=== PATIENT | male | born 1950 | race Caucasian/White ===

== ENCOUNTER 2017-09-23 08:36 | Outpatient (CLI) | payer MEDICARE, BC ==
[~2017-09-23 08:36] MED LIST: ISOVUE-370 76%-LOCM 1 ML ONE
== END 2017-09-23 08:37 | disposition home or self-care (01) ==
LOC: BICCT 08:36
PROVIDERS: ATTEND Student in an Organized Health Care Education/Training Program
DX: R42 Dizziness and giddiness (principal); R26.89 Other abnormalities of gait and mobility; I70.90 Unspecified atherosclerosis
CPT/HCPCS: 70498

== ENCOUNTER 2017-09-30 08:45 | Outpatient (CLI) | payer MEDICARE, BC | END 2017-09-30 08:46 | disposition home or self-care (01) | LOC: BICMRI 08:45 | PROVIDERS: ATTEND Student in an Organized Health Care Education/Training Program | DX: M50.90 Cervical disc disorder, unspecified, unspecified cervical region (principal); R42 Dizziness and giddiness; R26.89 Other abnormalities of gait and mobility; M48.02 Spinal stenosis, cervical region; M99.81 Other biomechanical lesions of cervical region | CPT/HCPCS: 72141 ==

== ENCOUNTER 2017-11-17 10:27 | Outpatient (CLI) | payer MEDICARE, BC ==
--- NOTE | 2017-11-17 11:40 | RAD ---
NEUTRAL AND FLEXION AND EXTENSION LATERAL IMAGING OF THE CERVICAL SPINE: DATE: 11/17/17. COMPARISON: None. HISTORY: Cervical radiculopathy. FINDINGS: There is straightening of the normal cervical lordosis on the neutral lateral imaging with mild exagg erated kyphosis. There is disk space narrowing and degenerative end plate change with anterior osteo phyte formation throughout the cervical spine, most prominent at C3-4, C4-5, C5-6, C6-7, and C7-T1. With flexion, there is no significant anterolisthesis or retrolisthesis. The C7-T1 level is not well visualized on the flexion imaging. With extension, there is no significant anterolisthesis or retro listhesis. No prevertebral soft tissue swelling. IMPRESSION: Multilevel degenerative change within the cervical spine as described above. POS: COLE
== END 2017-11-17 10:28 | disposition home or self-care (01) ==
LOC: TBSIIMAG 10:27
PROVIDERS: ATTEND Neurological Surgery
DX: M47.22 Other spondylosis with radiculopathy, cervical region (principal)
CPT/HCPCS: 72040

== ENCOUNTER 2018-03-16 11:46 | Outpatient (CLI) | payer MEDICARE, BC ==
[2018-03-16 12:50] LABS: Hemoglobin 15.5 g/dL (14.0-18.0); Mean Corpuscular HGB CONC 33.2 g/dL (32.0-36.0); Mean Corpuscular Volume 99.5 fL (78.0-98.0); Mean Platelet Volume 7.1 fL (7.4-10.4); Platelet Count 236 thou/uL (130-400); RBC Distribution Width 12.2 % (11.5-14.5); White Blood Cell (WBC) Count 6.6 thou/uL (4.8-10.8)
[2018-03-16 12:59] LABS: INR-International Normal Ratio 0.9; PTT 27.7 SEC (22.9-36.1); Prothrombin Time 12.6 SEC (12.0-14.7)
== END 2018-03-16 11:47 | disposition home or self-care (01) ==
LOC: LABBT 11:46
PROVIDERS: ATTEND Neurological Surgery
DX: Z01.812 Encounter for preprocedural laboratory examination (principal); M47.12 Other spondylosis with myelopathy, cervical region; M50.90 Cervical disc disorder, unspecified, unspecified cervical region
CPT/HCPCS: 85027; 85610; 85730

== ENCOUNTER 2018-04-22 10:36 | Day surgery (SDC) | payer MEDICARE, BC ==
[2018-03-16 12:20] VITALS: BMI 26.2
--- NOTE | 2018-04-21 18:46 | HP ---
HISTORY OF PRESENT ILLNESS: Mr. Almaraz is a 67-year-old male who has been referred to us for evalu ation of vertigo. Patient states that he has started having vertigo about a year ago with no event t hat he can remember. He has been seen by ENT and Neurology and now by Neurosurgery. The patient has not found any relief from his vertigo which is constant. It is better if he is still and worse with movement like shopping and . The patient denies any nausea or vomiting. He feels as though he cannot find his legs and that the room is spinning. He denies any falls. He does feel that his lef t leg is weaker and there is a shorter swing phase on walking and it is more difficult putting his pa nts on. The patient states that he had a disk herniation at C6, seven years ago, but injections made the pain go away. He has residual left ring and pinky finger numbness. Patient is retired but tanya ins active. He ran a 5K back in August and tries to exercise 5 days a week. REVIEW OF SYSTEMS: A 10-point review of systems has been completed and is negative other than stated in the HPI above. PAST MEDICAL HISTORY: Colon resection, basal cell removal, and stapedectomy. PAST SURGICAL HISTORY: Ear drum/stapes replacement 1977, colon resection 1984. FAMILY HISTORY: Father was , diagnosed with diabetes and heart disease. Mother is , diagnosed with cancer. Siblings are alive. SOCIAL HISTORY: Patient is a nonsmoker, occasionally drinks alcohol. He is sexually active with his , , and he is retired. MEDICATIONS: Aspirin 81 mg, magnesium, fish oil, iron supplement, Cosamin ASU for joint health, calc ium. ALLERGIES: No known drug allergies. PHYSICAL EXAMINATION: GENERAL: The patient is alert and oriented x3. Does not appear to be in any visible distress. HEENT: Head is normocephalic, atraumatic. Pupils are equal, round, and reactive to light. Extraocu lar movements are intact. Hearing is intact. Moist mucous membranes. NECK: Soft, supple, no masses noted. Range of motion intact and nonpainful. RESPIRATORY: Normal work of breathing on room air. CARDIOVASCULAR: Normal S1, S2, regular rate and rhythm. NEUROLOGIC: Patient is awake, alert, and oriented x3. Memory attention, fund of knowledge and langu age are normal. Cranial nerves are normal. Cranial nerves are grossly intact. EXTREMITIES: Upper extremities do not disclose any focal motor weakness or deep tendon asymmetry. Abnormal left hand intrinsic muscles decreased sensation to the left fourth and fifth digit. Lower extremities normal. Does not disclose any focal motor weakness or deep tendon reflex asymmetry . IMAGING: Cervical spinal stenosis at C6 through T1 foraminal narrowing. ASSESSMENT: Cervical myelopathy due to degenerative disks. PLAN: Dr. Saenz has offered ACDF C6 through T1. We have discussed indications, risks, benefits, alternatives, and expected results of surgery. The risks discussed include but were not limited to bleeding, infection, CSF leak, nerve damage, weakness, swallowing trouble, feeding tube placement, tr acheal injury, esophageal injury, vocal cord injuries, spinal cord injuries, incontinence, paralysis, ventilator dependence, wheelchair dependence, stroke, loss of vision, carotid artery injury, jugular vein injury, hardware misplacement, and cardiopulmonary complications of anesthesia or . Long- term complications discussed included but were not limited to hardware failure and then degradation o f the surrounding disks. The patient states that he understands the risks and is willing to move for avalos with surgery.
[2018-04-22] MEDS ORDERED: CEFAZOLIN 2 GM/50 ML BAG ONE ×2 (11:16→17:57)
[2018-04-22] MEDS ORDERED: Thrombin 5000 UNITS/5 ML VIAL ONE (11:41)
[2018-04-22] MEDS ORDERED: Sodium Chloride 0.9% 10 ML ONE (11:41)
[2018-04-22 11:46] LABS: #Eosinphils 0.3 thou/uL (0.0-0.7); #Monocytes 0.5 thou/uL (0.11-0.59); #Neutrophils 2.9 thou/uL (1.40-6.50); %Basophils 0.8 % (0.0-1.0); %Eosinophils 6.4 % (0.0-10.0); %Lymphocytes 20.9 % (21.0-51.0); %Monocytes 11.1 % (0.0-10.0); %Neutrophils 60.7 % (42.0-75.0); Hemoglobin 15.3 g/dL (14.0-18.0); Mean Corpuscular HGB CONC 31.9 g/dL (32.0-36.0); Mean Corpuscular Hemoglobin 32.1 pg (27.0-31.0); Mean Platelet Volume 8.1 fL (7.4-10.4); Platelet Count 188 thou/uL (130-400); Red Blood Cell (RBC) Count 4.76 mill/uL (4.70-6.10); White Blood Cell (WBC) Count 4.8 thou/uL (4.8-10.8)
[2018-04-22 11:48] LABS: PTT 23.1 SEC (22.9-36.1)
[2018-04-22 11:58] LABS: Prothrombin Time 13.3 SEC (12.0-14.7)
[2018-04-22] MEDS ORDERED: Fentanyl 100 MCG/2 ML VIAL ONE ×2 (12:26→16:53)
[2018-04-22] MEDS ORDERED: Ondansetron HCl/PF 4 MG/2 ML Vial IVP PRN (17:03)
[2018-04-22] MEDS ORDERED: Promethazine HCl 25 MG/ML VIAL IM/IV PRN (17:03)
[2018-04-22] MEDS ORDERED: Non-Formulary Medication 1 EACH PO PRN (17:03)
--- NOTE | 2018-04-22 20:09 | OP ---
DATE OF PROCEDURE: 04/22/2018 SURGEON: Marcel Saenz M.D. DEVIL TENDER: Prerna Stack PA-C. PREOPERATIVE INDICATION: Treat pain, prevent neurological deterioration. PREOPERATIVE DIAGNOSES: Cervical intervertebral disk disease at C6-C7 with myelopathy, cervical inte rvertebral disk disease at C7-T1 with a left C8 radiculopathy. POSTOPERATIVE DIAGNOSES: Cervical intervertebral disk disease at C6-C7 with myelopathy, cervical int ervertebral disk disease at C7-T1 with a left C8 radiculopathy. OPERATIVE PROCEDURE: Anterior cervical diskectomy, intervertebral arthrodesis, placement of interver tebral biomechanical device and anterior cervical plating C6-7, C7-T1, local morselized autograft, mo rselized Allograft, operating microscope. PREOPERATIVE MEDICATION: Ancef 2 grams IV. DRAIN NUMBER: Zero. DRAIN TYPE: None. OPERATIVE DICTATION: The patient was brought to the operating room. General endotracheal anesthesia was induced keeping the neck in normal anatomic alignment. The head was carefully positioned on a g el-filled donut shaped head rest and a lateral fluoro radiograph was used to plan our incision. The right side of the neck was sterilely prepped and draped. We opened with a 15 blade knife and control led bleeding with bipolar cautery. We dissected sharply to the platysma and then we cut this muscle in line with our incision. We continued our dissection medial to the sternocleidomastoid and lateral to the trachea and esophagus all the way down to the prevertebral space. We placed a marker at C5-6 and took a lateral fluoro radiograph there. We then elevated the longus colli muscles off the anter ior surface of C6, C7, and T1. We placed self-retaining retractors beneath the longus colli muscles and distraction pins at C6 and T1. We distracted across the intervening interspaces with a [place] di stractor. With a 15 blade knife, we incised the disk spaces, and removed disk contents using curette s and rongeurs. The operating microscope was brought in the field. Under microscopic magnification and using microsurgical techniques, we removed the remainder of the i ntervertebral disk. Using a micro curet, we accessed the ventral epidural space and using 1 and 2 mm Kerrison rongeurs, we removed posterior osteophytes and posterior longitudinal ligament across the i nterspace at C6-7 from one neural foramen to the other and at C7-T1 in a similar fashion from 1 xenia en to the other. At the completion of our decompression, we could easily visualize through the dura that the spinal cord was pulsatile with each heartbeat indicating a good decompression and no further pinch of the cord itself. We irrigated copiously with bacitracin irrigation. We prepared the endpl ates for grafting with a bone rasp at each of the interspaces. We measured the height of the intersp nicki to 6 mm at C7-T1 and 7 mm at C6-7. The appropriate sized PEEK intervertebral grafts were brought into the field. These were loaded with demineralized bone matrix and morselized autograft. The aut ograft was obtained from removal of osteophytes. They were cleaned of soft tissue attachments, brewster lized and added to demineralized bone matrix as our fusion substrate. The PEEK grafts were advanced into the respective interspaces under radiographic guidance to the appropriate depth. We then remove d our distraction pins and took the operating microscope out of the field. We brought an anterior ce rvical plate into the field. We drilled commercial helicopter pilot holes through the plate into the vertebral segments at C6, C7, and T1 and we affixed the plate using 14 mm screws. We used fixed angle screws at T1 and va riable angle screws at C6 and C7. We engaged the locking mechanism over each of the 6 screws. We to ok AP and lateral fluoro radiographs to confirm adequate positioning of our instrumentation. We then irrigated with bacitracin irrigation. We closed the wound in anatomic layers. We applied a sterile dressing. This was a clean case and no contamination.
== END 2018-04-22 18:45 | disposition home or self-care (01) ==
LOC: SDC 10:36
PROVIDERS: ATTEND Neurological Surgery
PROC: 0RG10A0 Fusion of Cervical Vertebral Joint with Interbody Fusion Device, Anterior Approach, Anterior Column, Open Approach (ICD-10-PCS; principal; 2018-04-22)
PROC: 0RG40A0 Fusion of Cervicothoracic Vertebral Joint with Interbody Fusion Device, Anterior Approach, Anterior Column, Open Approach (ICD-10-PCS; 2018-04-22)
PROC: 0RT30ZZ Resection of Cervical Vertebral Disc, Open Approach (ICD-10-PCS; 2018-04-22)
PROC: 0RT50ZZ Resection of Cervicothoracic Vertebral Disc, Open Approach (ICD-10-PCS; 2018-04-22)
DX: M50.023 Cervical disc disorder at C6-C7 level with myelopathy (principal); M50.123 Cervical disc disorder at C6-C7 level with radiculopathy; M48.03 Spinal stenosis, cervicothoracic region; R42 Dizziness and giddiness; Z79.82 Long term (current) use of aspirin; Z79.899 Other long term (current) drug therapy; Z90.49 Acquired absence of other specified parts of digestive tract
CPT/HCPCS: 20930; 20936; 22551; 22552; 22845; 22853 ×2; 76001; 85025; 85610; 85730; 96374; C1713 ×2; C1776; 36415; 96365; 96375; J3010; J3490; L0174

== ENCOUNTER 2018-06-25 13:13 | Outpatient (CLI) | payer MEDICARE, BC ==
--- NOTE | 2018-06-25 14:27 | RAD ---
CERVICAL SPINE 4 VIEWS: DATE: 06/25/2018. COMPARISON: 11/17/2017. HISTORY: Evaluate cervical spine following surgery, cervical spine pain. FINDINGS: Open mouth odontoid view demonstrates a normal-appearing dens in C1-2 articulation. Lateral exam dem onstrates anterior diskectomy and fusion hardware at C6-7/C7-T1. Posterior elements of upper thoraci c spine incompletely assessed on this examination. No anterolisthesis or retrolisthesis. There is disk space narrowing with degenerative end plate change and anterior osteophyte formation at C5-6 and to a lesser degree C3-4 and C4-5. No prevertebral soft tissue abnormality evident. IMPRESSION: Postoperative and degenerative change of the cervical spine as detailed above. Artifact limits detai led assessment of the posterior elements of the lower cervical spine/cervicothoracic junction on the lateral examination. POS: COLE
== END 2018-06-25 13:14 | disposition home or self-care (01) ==
LOC: TBSIIMAG 13:13
PROVIDERS: ATTEND Neurological Surgery
DX: M47.12 Other spondylosis with myelopathy, cervical region (principal); M50.00 Cervical disc disorder with myelopathy, unspecified cervical region; Z98.890 Other specified postprocedural states
CPT/HCPCS: 72040